=== PATIENT | male | born 1960 | race Caucasian/White ===

== ENCOUNTER 2018-12-25 13:34 | Inpatient (IN) ==
[2018-12-24 16:53] LABS: HEMOGLOBIN 12.4 g/dL (14.0-18.0); MCH 31.2 PG (27-31); MCHC 32.6 g/dL (33-37); MCV 95.5 FL (81-99); MPV 10.1 FL (7.4-10.4); RBC 3.98 XMIL (4.7-6.1); RDW 12.7 % (11.5-14.5); WBC 8.82 X1000 (4.8-10.8)
--- NOTE | 2018-12-24 17:11 | EKG Report ---
Test Performed on : 12/24/2018 4:28:00 PM Test Reason : PAT Blood Pressure : / mmHG Vent. Rate : 052 BPM Atrial Rate : 102 BPM P-R Int : 144 ms QRS Dur : 136 ms QT Int : 556 ms P-R-T Axes : 073 094 066 degrees QTc Int : 517 ms Sinus tachycardia. with 2nd degree AV block. with 2:1 AV conduction. Right bundle branch block Abnormal ECG When compared with ECG of 26-NOV-2015 09:09, Sinus rhythm. is now with 2nd degree AV block. Vent. rate has decreased BY 37 BPM Right bundle branch block is now present Confirmed by Sylvester COLON, Selvin Haley ([id number]) on 12/25/2018 1:18:27 PM
[2018-12-24 17:20] LABS: AGAP 14; BUN 20 mg/dL (8-22); CALCIUM 9.8 mg/dL (8.8-10.2); CHLORIDE 102 mmol/L (98-107); COSMO 290; CREATININE 1.2 mg/dL (0.7-1.2); ESTIMATED GFR > 60; GLUCOSE 135 mg/dL (70-104); POTASSIUM 4.1 mmol/L (3.5-5.1); SODIUM 143 mmol/L (136-145); TCO2 27 mmol/L (25-35)
[~2018-12-25 13:34] MED LIST: FENTANYL ONE; ROBINUL ONE
[2018-12-25] MEDS ORDERED: SENSORCAINE 0.25%/EPI 1:200,000 ONE (14:13)
[2018-12-25] MEDS ORDERED: SODIUM CHLORIDE 0.9% ONE (14:13)
[2018-12-25] MEDS ORDERED: LR 1,000 ML ONE ×2 (14:14→14:15)
[2018-12-25] MEDS ORDERED: KEFZOL 1 GM/D5W 1 GM/50 ML IVPB ONE (14:15)
[2018-12-25] MEDS ORDERED: PEPCID ONE (14:15)
[2018-12-25] MEDS ORDERED: REGLAN ONE (14:15)
[2018-12-25] MEDS ORDERED: HEPARIN 1000 UNITS/NS 1,000 UNIT/500 ML IV.SOLN ONE (15:22)
[2018-12-25] MEDS ORDERED: VERSED ONE (15:44)
[2018-12-25] MEDS ORDERED: DILAUDID ONE (15:44)
--- NOTE | 2018-12-25 15:53 | CARDIOLOGY CONSULTATION ---
DATE: 12/25/2018 HISTORY OF PRESENT ILLNESS: Mr. Hankins is a 58-year-old gentleman who was at [facility] and noted to have cholecystitis, came to the outpatient preop area for a cholecystectomy. Electrocardiogram was done which revealed 2:1 AV block. Cardiology was consulted. The patient states that from a cardiac standpoint, he has not had any exertional component of chest pain. His main problems have been with abdominal discomfort and tenderness. As far as cardiac symptoms are concerned, he has had syncope in the last 1 year and in the last few months he has had episodes of dizziness, not associated with surya syncope. He denies exertional chest pain. There is no orthopnea. He has been active otherwise. He has an extensive cardiac history as below. REVIEW OF SYSTEM: Fourteen point review of systems was done. GI System: As above. Cardiovascular System: As above. Respiratory System: There is no history of cough, expectoration, hemoptysis. There is no history of fevers or chills. Endocrine system: Stable. PAST MEDICAL HISTORY: 1. Coronary artery disease, status post coronary artery bypass grafting in 2007 with JACOBS to left anterior descending artery, SVG to diagonal, SVG to OM, SVG to RPDA. 2. Cardiomyopathy, ejection fraction of 40 to 45%. 3. He has had Hodgkin lymphoma in 1996 status post radiation and chemotherapy. 4. Hypothyroidism. 5. Diabetes mellitus. HOME MEDICATIONS: Include amlodipine 5 mg a day, levothyroxine 175, Coreg 25 mg p.o. daily, Nuvigil 250 mg a day, oxycodone, tramadol. ALLERGIES: He is not known to be allergic to any medications. SOCIAL HISTORY: The patient does not smoke. He does not dip. There is no history of alcohol abuse. PHYSICAL EXAMINATION: Vital Signs: Blood pressure was 143/71. Cardiovascular system: First and second heart sounds were heard. There is a faint systolic murmur. Respiratory System: Normal air entry. There are no crepitations or rhonchi. Abdomen: There is tenderness in his right hypochondrium. Central nervous system: Alert. Was moving all 4 extremities. Extremities: Examination of extremities revealed no pedal edema. HEENT: He has poor oral dental hygiene. LABORATORY: Sodium 143, potassium 4.1, BUN 20, creatinine 1.2, calcium 9.8. Hematology: WBC 8.82, hemoglobin 12.4, hematocrit 38, platelet count of 273,000. ASSESSMENT AND PLAN: 1. Mr. Jelani Hankins is a 58-year-old gentleman with a history of coronary artery disease, coronary artery bypass grafting, hypothyroidism, hypertension, is going to undergo a cholecystectomy today. Electrocardiogram revealed 2:1 block with a rate of 52 beats per minute and right bundle branch block. Given this, we will place a temporary wire prior to his cholecystectomy. Risks and benefits were explained. Patient is willing to undergo the procedure. 2. As far as his baseline rhythm and his right bundle branch block, he may well need a permanent device. We will get an echocardiogram to reassess his cardiac and valvular function. He had cardiomyopathy by echocardiogram. His last ejection fraction was 40 to 45%. We will get an echocardiogram done in the morning. 3. He is on beta-blockers, Coreg which he has been taking. We will hold postoperatively and evaluate his rhythm. While he was in [facility] he was told that he had an abnormal EKG. We will request records of the same. Thank you for the consult. We will follow hospital course. cc: Yaniv Aleman MD
[2018-12-25 16:29] LABS: INR 1.16
[2018-12-25] MEDS ORDERED: DIPRIVAN 1% ONE (16:47)
[2018-12-25] MEDS ORDERED: ROBINUL ONE ×2 (16:48→17:41)
[2018-12-25] MEDS ORDERED: XYLOCAINE-MPF 2% ONE (16:48)
[2018-12-25] MEDS ORDERED: OFIRMEV 1000 MG/ISOTONIC SOLN 1,000 MG/100 ML BOTTLE ONE (17:02)
[2018-12-25] MEDS ORDERED: ZEMURON ONE (17:03)
[2018-12-25] MEDS ORDERED: DECADRON ONE (17:18)
[2018-12-25] MEDS ORDERED: TORADOL ONE (17:18)
[2018-12-25] MEDS ORDERED: ZOFRAN ONE (17:18)
[2018-12-25] MEDS ORDERED: NEOSTIGMINE ONE (17:41)
--- NOTE | 2018-12-25 17:56 | Diag Imaging Result Doc PS360 ---
EXAM: OPERATIVE CHOLANGIOGRAM HISTORY: CHOLECYSTECTOMY TECHNIQUE: Intraoperative cholangiogram, single view COMPARISON: None. FINDINGS: Contrast fills the common bile duct. It is emptied into the duodenum. No stone or stricture. IMPRESSION: Normal intraoperative cholangiogram Electronically signed by Tom Marrero 12/25/2018 5:54 PM
[2018-12-25] MEDS ORDERED: NS 1,000 ML ONE (18:25)
[2018-12-25] MEDS ORDERED: ZOFRAN IV PRN (18:26)
[2018-12-25] MEDS ORDERED: LR 1,000 ML IV SCH (18:30)
[2018-12-25] MEDS: DILAUDID IV PRN ×2 (19:47→22:30)
[2018-12-25] MEDS: NS 1,000 ML IV SCH (19:47)
[2018-12-25] MEDS: PERCOCET-10 PO PRN (20:17)
--- NOTE | 2018-12-25 22:11 | CARDIAC CATH REPORT ---
PROCEDURE NAME: - INDICATION FOR PROCEDURE: Symptomatic 2:1 AV block, needing pacemaking to undergo cholecystectomy. PROCEDURES PERFORMED: Temporary pacemaker wire insertion from right femoral approach. PROCEDURE DETAIL: Mr. Hankins was brought to the catheterization laboratory. He was prepped in usual fashion. A 6-Sinhala sheath was placed in the right femoral vein via modified Seldinger technique. A temporary pacing wire was floated into the right ventricle via fluoroscopic guidance. It was floated into appropriate position, with good capture. Ultimately the device was sutured in place. Final programming outputs are rate of 70 and 5 mA. The patient tolerated the procedure well, without any complications. He had a total of 5-10 mL of blood loss. No IV contrast was used. cc: MD Aneudy Iglesias MD
--- NOTE | 2018-12-26 00:15 | OPERATIVE NOTE ---
PROCEDURE DATE: 12/25/2018 PREOPERATIVE DIAGNOSES: 1. Cholecystitis. 2. Symptomatic cholelithiasis. 3. Heart block. POSTOPERATIVE DIAGNOSES: 1. Cholecystitis. 2. Symptomatic cholelithiasis. 3. Heart block. PROCEDURE: Laparoscopic cholecystectomy with operative cholangiogram. SURGEON: Aneudy Wall MD. ANESTHESIA: General. ESTIMATED BLOOD LOSS: 5 mL. COMPLICATIONS: None apparent. SPECIMENS: Gallbladder. FINDINGS: The gallbladder was distended and appeared to be chronically inflamed. The cholangiogram revealed filling of the proximal hepatic radicles as well as distal common bile duct. There was flow of contrast seen entering the duodenum without filling defects or stenoses. TECHNIQUE: The patient was brought to the operating room and placed supine on the table. General anesthesia was induced. He was prepped and draped in usual sterile fashion. Marcaine 0.25% with epinephrine was used to anesthetize our incisions. An 11 mm incision was made just above the umbilicus. The fascia was exposed, incised sharply. Entry into the peritoneal cavity was obtained under direct vision with the Optiview device. Pneumoperitoneum was established. The camera was inserted. There was no evidence of injury to underlying structures. He was placed in reverse Trendelenburg in left rotation. Three 5 mm incision ports were placed across the epigastrium and right upper quadrant per usual routine. The dome of the gallbladder was grasped by the hotel administrative assistant with an Allis clamp and lifted up superiorly. Fatty adhesions were taken off the wall of the gallbladder with hook cautery and blunt dissection. The triangle of Calot was then dissected out with the [place] forceps and hook cautery until the critical views was obtained. The gallbladder-liver junction was seen. There were only 2 structures entering the gallbladder, the cystic duct and cystic artery. The artery was clipped proximally and distally and incised between with scissors. A clip was placed distally on the cystic duct. A ductotomy was made proximal to this with scissors. A 14-gauge Angiocath was passed through the right upper quadrant. The Taut cholangiogram catheter was passed into the cystic duct and held in place with a clip. The cholangiogram was performed with findings as noted above. The clip, catheter, and Angiocath were removed. Two clips were placed on the proximal cystic duct, it was divided distal to these with scissors. The gallbladder was removed from the liver bed using hook cautery, obtaining hemostasis as we went. After it was detached from the liver, there was some minor bloody oozing which was controlled with cautery. I then irrigated with saline and suctioned out the old blood and irrigation. The gallbladder was placed in an EndoCatch bag. It was brought out through the umbilical port site under direct vision. The abdomen was desufflated. The ports were removed. The umbilical fascia was closed with [id number] 0 Vicryl. The skin was closed with 4-0 subcuticular Monocryl and Steri-Strips. There were no apparent complications. He was awakened in stable condition and transferred to the recovery room. There were no apparent complications. cc: Aneudy Wall MD
[2018-12-26] MEDS: DILAUDID IV PRN ×4 (01:45→11:18)
[2018-12-26 06:04] LABS: AGAP 15; BUN 21 mg/dL (8-22); CALCIUM 8.9 mg/dL (8.8-10.2); CHLORIDE 104 mmol/L (98-107); COSMO 289; CREATININE 0.9 mg/dL (0.7-1.2); ESTIMATED GFR > 60; GLUCOSE 152 mg/dL (70-104); MAGNESIUM 1.9 mg/dL (1.5-2.7); POTASSIUM 4.3 mmol/L (3.5-5.1); SODIUM 142 mmol/L (136-145); TCO2 23 mmol/L (25-35)
--- NOTE | 2018-12-26 06:44 | Diag Imaging Result Doc PS360 ---
CHEST-PORTABLE - 12/26/2018 INDICATION: heart block, temporary pacemaker COMPARISON: 11/26/2015 FINDINGS: There are two stable sternotomy wires. Heart size and pulmonary vascularity is grossly normal. Lung volumes are much lower. No infiltrates or edema. No pneumothorax or pleural effusion. IMPRESSION: Low lung volumes. No acute disease. Electronically signed by Gideon Rosa 12/26/2018 6:42 AM
[2018-12-26] MEDS: PERCOCET-10 PO PRN (07:00)
[2018-12-26] MEDS ORDERED: SYNTHROID PO SCH ×2 (07:00)
--- NOTE | 2018-12-26 07:41 | EKG Report ---
Test Performed on : 12/26/2018 06:27:57 AM Test Reason : complete heart block Blood Pressure : / mmHG Vent. Rate : 071 BPM Atrial Rate : 102 BPM P-R Int : 000 ms QRS Dur : 172 ms QT Int : 542 ms P-R-T Axes : 000 -80 093 degrees QTc Int : 588 ms Sinus tachycardia. with complete heart block. and Ventricular-paced rhythm Abnormal ECG When compared with ECG of 24-DEC-2018 16:28, Electronic ventricular pacemaker has replaced Sinus rhythm. Confirmed by Belkys COLON, Festus Haley ([id number]) on 12/28/2018 6:54:28 AM
[2018-12-26] MEDS ORDERED: NORVASC PO SCH ×2 (09:00)
[2018-12-26] MEDS: NS 1,000 ML IV SCH (09:10)
[2018-12-26 11:42] VITALS: BP 164/94
--- NOTE | 2018-12-26 16:14 | ECHO REPORT ---
ORDER DATE: 12/25/2018 ECHOCARDIOGRAPHIC MEASUREMENTS: 1. Interventricular septum 0.9. 2. Left ventricular posterior wall 0.9. 3. Diastolic diameter 4.2. 4. Left atrium 4. 5. Aorta 3.1. 6. Mitral valve was normal. 7. Tricuspid valve was normal. 8. Aortic valve leaflets are mildly sclerosed, trileaflet. 9. Pulmonic valve was normal. 10. There is mild pulmonary regurgitation. 11. Peak velocity across the aortic valve was 2.7 m/sec with a mean gradient of 18 mmHg. Peak gradient of 29 mmHg, aortic valve area by planimetry was 1.4 square cm. There is mild aortic stenosis. SUMMARY: 1. There is moderate mitral annular calcification. 2. There is mild mitral regurgitation. 3. Mild tricuspid regurgitation. 4. Peak velocity across the tricuspid valve was 2.8 m/sec. 5. Pulmonary artery systolic pressure of 41 mmHg. There is mild aortic regurgitation. 6. Normal left ventricular cavity size. 7. Estimated ejection fraction of 60%. Pacing lead was noted in the right chamber. 8. There is no pericardial effusion or obvious intracardiac mass or thrombus seen. cc: MD Genia Martínez PA Jason R. Seale, MD
--- NOTE | 2018-12-26 18:22 | GENERAL SURGERY PROGRESS NOTE ---
DATE: 12/26/2018 SUBJECTIVE: The patient reports to be feeling much better. He still has some abdominal soreness. No nausea. No chest pain. No shortness of breath. OBJECTIVE: He is afebrile. Vital signs are stable.General: He is awake, alert, and oriented x3. No acute distress. Gastrointestinal: Soft, nondistended, appropriately tender. Incisions are clean, dry, and intact. Cardiovascular: He is paced and regular. Respiratory: No increased work of breathing. LABORATORY: Metabolic profile reviewed and unremarkable. ASSESSMENT AND PLAN: A 58-year-old male, postoperative day 1 laparoscopic cholecystectomy. He has a right bundle-branch block and will require permanent pacemaker placement today. He is stable to be transferred for this procedure from my standpoint. Instructions were given to the patient. cc: Aneudy Wall MD
== END 2018-12-26 11:30 | disposition short-term general hospital (02) | DRG 418 ==
LOC: OR 13:34 → ICU 19:05
PROVIDERS: ADMIT Surgery; ATTEND Surgery